=== PATIENT | male | born 1975 | race African-American/Black ===

== ENCOUNTER 2017-07-14 06:09 | Emergency (ER) | payer SELFPAY ==
[~2017-07-14] VITALS: Ht 177.8 cm; Wt 81.6 kg
[2017-07-14 06:10] VITALS: BP 140/98
--- NOTE | 2017-07-14 06:20 | Emergency Room Report ---
History of Present Illness General Chief Complaint: Alcohol Intoxication Source: EMS Present Illness HPI This is an approximately 44 yo male BIBA as a Emil Shin. He was found sleeping at a table outside of [facility]. Wouldn't get up so they called 911. Pt is not cooperative. no trauma. unable to get any other history. Allergies: Coded Allergies: UNABLE TO ASSESS (Unverified , 07/14/17) Patient History Past Medical History: see triage record, old chart reviewed, unable to obtain Past Surgical History: unable to obtain Pertinent Family History: unable to obtain Immunizations: other Reviewed Nursing Documentation: PMH: Agreed, PSxH: Agreed Nursing Documentation-PMH Past Medical History Deferred: Pt Cognitively Impaired Review of Systems All Other Systems: limited - due to intoxication. Physical Exam Vital Signs Date Time Temp Pulse Resp B/P (MAP) Pulse Ox O2 Delivery O2 Flow Rate FiO2 07/14/17 06:02 51 18 148/100 98 Room Air vitals with htn. Sp02 EP Interpretation: reviewed, normal General Appearance: well appearing, no apparent distress Head: normocephalic, atraumatic Eyes: bilateral eye PERRL, bilateral eye EOMI ENT: hearing grossly normal, normal pharynx Neck: full range of motion, supple, no meningismus Respiratory: chest non-tender, lungs clear, normal breath sounds Cardiovascular #1: regular rate, rhythm, no murmur Gastrointestinal: normal bowel sounds, non tender, no mass, no organomegaly, no bruit, non-distended Musculoskeletal: back normal, normal range of motion Neurologic: grossly normal Psychiatric: mood/affect normal Skin: warm/dry Medical Decision Making Diagnostic Impression: Primary Impression: Altered mental status Qualified Codes: R41.82 - Altered mental status, unspecified ER Course pt with AMS. He would purposefully close his eyes to prevent me from opening them. He would glare at me when I tried painful stimuli. no trauma. no focal deficits. will observe until more clinically sober. Last Vital Signs Date Time Temp Pulse Resp B/P (MAP) Pulse Ox O2 Delivery O2 Flow Rate FiO2 07/14/17 06:02 51 18 148/100 98 Room Air Status: improved Disposition: HOME, SELF-CARE Condition: Stable Patient Instructions: Alcohol Intoxication, [id number] Additional Instructions: Abstain from drugs and alcohol. Follow up with your doctor in 7 days. Return if worse. MERLYN LERMA M.D. Jul 14, 2017 06:20
[2017-07-14] MEDS ORDERED: UNOBMED (06:31)
[2017-07-14 07:08] VITALS: BP 132/93
[2017-07-14 07:30] VITALS: BP 120/88
[2017-07-14 09:30] VITALS: BP 122/89
[2017-07-14 11:30] VITALS: BP 133/96
[2017-07-14 12:44] VITALS: BP 136/95
== END 2017-07-14 12:46 | disposition home or self-care (01) ==
LOC: EDBD 06:09 → EMR 06:36 → EDBD 06:36 → EMR 12:46
DX: R41.82 Altered mental status, unspecified (principal)
CPT/HCPCS: 99284